=== PATIENT | female | born 1980 | race Caucasian/White ===

== ENCOUNTER 2021-01-21 19:52 | Observation (INO) | payer SELFPAY ==
[2021-01-21] MEDS ORDERED: Sodium Chloride 0.9% 10 ML Syringe FLUSH PRN (20:06)
[2021-01-21] MEDS ORDERED: Sodium Chloride 0.9% 1,000 ML IV ONE (20:09)
--- NOTE | 2021-01-21 20:34 | EDM.PDOC ---
ED HPI GENERAL MEDICAL PROBLEM - General Chief Complaint: Neurological Problem Stated Complaint: SEIZURE Time Seen by Provider: 01/21/21 19:52 Source of Information: Reports: Patient, EMS, Family, Provider History Limitations: Reports: No Limitations - History of Present Illness INITIAL COMMENTS - FREE TEXT/NARRATIVE: Nan, 40-year-old female, presents by ambulance to the emergency department after a witnessed syncopal episode/seizure activity while attending a high school [employer] concert here in the [facility]. Her nephew was performing who also resides with her and her mother. States she had poor intake today having only a slice of cinnamon bread prior to attending the concert. Denies any issues or concerns throughout the day. States she has poor water intake. She was seated next to her mother at which time was noted to be appearing slightly different with some twitching to the eyelids. Her mother lowered her to the floor to avoid injury at which time tonic-clonic activity was noted predominantly facial and some to the extremities. There was no loss of bowel nor bladder, no clenching mashing of the teeth, and no injury noted. Multiple medical providers of the community including Dr. Nancy Edge her PCP were in attendance and witnessed some of the activity as it was concluding. She was able to ambulate with assistance from the gymnasium out to the ambulance for transport here for evaluation. She is denying any concerns physically but is questioning what occurred. Vaccinated with J&J Covid 19, awaiting notice for booster shot. Onset: Today, Sudden Onset Date: 01/21/21 Onset Time: 19:15 Duration: Minutes:, Resolved Prior to Arrival Location: Reports: Head Quality: Reports: Other Severity: Mild Improves with: Reports: Other (resolved) Worsens with: Reports: None Context: Reports: Activity Associated Symptoms: Reports: No Other Symptoms - Related Data Allergies Allergy/AdvReac Type Severity Reaction Status Date / Time ciprofloxacin [From Cipro] Allergy Hives Verified 01/21/21 20:47 ciprofloxacin HCl Allergy Hives Verified 01/21/21 20:47 [From Cipro] levofloxacin [From Levaquin] Allergy Hives Verified 01/21/21 20:47 prochlorperazine edisylate Allergy Anxiety Verified 01/21/21 20:47 [From Compazine] prochlorperazine maleate Allergy Anxiety Verified 01/21/21 20:47 [From Compazine] Home Meds: Home Meds Acetaminop/Dichlphn/Isomethept [Midrin 325-100-65 MG] 1 cap PO DAILY PRN 06/05/13 [History] Acetaminophen [Tylenol] 325 - 650 mg PO Q4H PRN 06/05/13 [History] DULoxetine [Cymbalta] 60 mg PO BEDTIME 06/05/13 [History] Hydrocodone/Acetaminophen [Hydrocodon-Acetaminophn 10-325] 1 each PO DAILY PRN 06/05/13 [History] Ibuprofen [Advil] 200 - 800 mg PO Q6H PRN 06/05/13 [History] LORazepam [Ativan] 0.5 mg PO BEDTIME 06/05/13 [History] Magnesium Oxide [Magnesium] 500 mg PO BEDTIME 06/05/13 [History] Naproxen Sodium [Aleve] 220 mg PO Q12H PRN 06/05/13 [History] Omeprazole/Sodium Bicarbonate [Zegerid] 1 cap PO ASDIRECTED PRN 06/05/13 [History] Promethazine [Phenergan] 0.5 ml TOP ASDIRECTED 06/05/13 [History] diphenhydrAMINE [Benadryl] 50 mg PO BEDTIME PRN 06/05/13 [History] tiZANidine [Zanaflex] 4 mg PO QID PRN 06/05/13 [History] traMADol [Ultram] 50 mg PO Q4H PRN 06/05/13 [History] Ondansetron [Zofran ODT] 4 mg PO ASDIRECTED PRN 01/21/21 [History] Past Medical History - Past Health History Medical/Surgical History: Denies Medical/Surgical History (except) Cardiovascular History: Reports: High Cholesterol, Other (See Below) (Chronic tachycardia) Respiratory History: Reports: None (Chronic smoker with recent decrease/cessation) Genitourinary History: Reports: None Neurological History: Reports: Migraines Psychiatric History: Reports: None Oncologic (Cancer) History: Reports: Ovarian (partial ovarian removal) Social & Family History - Living Situation & Occupation Living situation: Reports: Single ED ROS GENERAL - Review of Systems Review Of Systems: Comprehensive ROS is negative, except as noted in HPI. ED EXAM, GENERAL - Physical Exam Exam: See Below Free Text/Narrative:: Alert, oriented, in no acute distress, stating she feels fine now. She is appropriate to place orientation and function that she had attended this evening as well as the details of her nephew's participation. Her mother is in attendance she somewhat recognizes me from when I sutured her finger the end of August 2020. HEENT is negative discharge or deformity. PERRLA no icterus no injection EOM intact. [place] moist mucous membranes with no erythema. Neck is soft supple no lymphadenopathy no JVD no carotid bruit auscultated. Thorax is clear throughout with no wheezes no crackles. Cardiac S1 is 2 mildly tachycardic slowly resolving throughout the stay. No flank pain no abdominal tenderness no edema to the periphery. Radial pulses correlate with apical heart rate. #1 Interpretation EKG Date: 01/21/21 Time: 20:20 Rhythm: NSR Rate (Beats/Min): 118 [place]: Normal P-Wave: Present QRS: Normal ST-T: Depressed QT: Normal Comparison: NA - No Prior EKG EKG Interpretation Comments: Sinus tachycardia. ?inferior ischemia, No STEMI Course - Vital Signs Last Recorded V/S: Last Vital Signs Temp 97.2 F 01/21/21 20:03 Pulse 105 H 01/21/21 21:00 Resp 12 01/21/21 21:00 BP 113/71 01/21/21 21:00 Pulse Ox 95 01/21/21 21:00 - Orders/Labs/Meds Orders: Active Orders 24 hr Category Date Time Status Peripheral IV Care [RC] . DIRECTED Care 01/21/21 20:08 Active Sodium Chloride 0.9% [Saline Flush] Med 01/21/21 20:06 Active 10 ml FLUSH Q8HR PRN Peripheral IV Insertion Adult [OM.PC] Stat Oth 01/21/21 20:06 Ordered EKG 12 Lead [EK] Stat Ther 01/21/21 20:06 Stop Req Medication Orders Sodium Chloride (Normal Saline) 1,000 mls @ 150 mls/hr IV ASDIRECTED [facility] Ibuprofen (Ibuprofen 600 Mg Tab) 600 mg PO Q6H PRN PRN Reason: Pain (mild 1-3) Sodium Chloride (Sodium Chloride 0.9% 10 Ml Syringe) 10 ml FLUSH Q8HR PRN PRN Reason: keep vein open Labs: Laboratory Tests 01/21/21 01/21/21 01/21/21 Range/Units 20:30 20:30 20:30 WBC 8.61 (5.00-10.00) 10^3/uL RBC 4.46 (3.80-5.50) 10^6/uL Hgb 13.3 D (12.0-16.0) g/dL Hct 41.8 (37.0-47.0) % MCV 93.7 H D (82.0-92.0) fL MCH 29.8 (27.0-31.0) pg MCHC 31.8 L (32.0-36.0) g/dL RDW 14.3 (11.5-14.5) % Plt Count 446 H D (150-400) 10^3/uL MPV 9.0 (7.4-10.4) fL Immature Gran % (Auto) 0.6 (0.0-5.0) % Neut % (Auto) 47.7 L (50.0-70.0) % Lymph % (Auto) 35.3 (20.0-40.0) % [place] % (Auto) 8.2 H (2.0-8.0) % Eos % (Auto) 7.4 H (1.0-3.0) % Baso % (Auto) 0.8 (0.0-1.0) % Neut # (Auto) 4.10 (2.50-7.00) 10^3/uL Lymph # (Auto) 3.04 (1.00-4.00) 10^3/uL [place] # (Auto) 0.71 (0.10-0.80) 10^3/uL Eos # (Auto) 0.64 H (0.10-0.30) 10^3/uL Baso # (Auto) 0.07 (0.00-0.10) 10^3/uL Immature Gran # (Auto) 0.05 (0.00-0.50) 10^3/uL Sodium 142 (136-145) mmol/L Potassium 3.4 L (3.5-5.1) mmol/L Chloride 103 (98-107) mmol/L Carbon Dioxide 22.6 (21.0-32.0) mmol/L Anion Gap 19.8 H (5-15) mmol/L BUN 29 H (7-18) mg/dL Creatinine 1.26 H (0.51-1.17) mg/dL Est Cr Clr Drug Dosing 58.67 mL/min Estimated GFR (MDRD) 47 mL/min Glucose 117 (70-140) mg/dL Calcium 8.6 L (8.7-10.3) mg/dL Total Bilirubin 0.1 L (0.2-1.0) mg/dL AST 21 (15-37) U/L ALT 29 (14-63) U/L Alkaline Phosphatase 155 H (46-116) U/L Troponin I High Sens 5.000 (0-51.000) pg/mL Total Protein 7.1 (6.4-8.2) g/dL Albumin 4.03 (3.40-5.00) g/dL Specimen Type Urine Color (YELLOW) Urine Appearance (CLEAR) Urine pH (5.0-9.0) Ur Specific [place] (1.005-1.030) Urine Protein (NEGATIVE) mg/dL Urine Glucose (UA) (NEGATIVE) mg/dL Urine Ketones (NEGATIVE) mg/dL Urine Occult Blood (NEGATIVE) Urine Nitrite (NEGATIVE) Urine Bilirubin (NEGATIVE) Urine Urobilinogen (0.2-1.0) E.U./dL Ur Leukocyte Esterase (NEGATIVE) Urine RBC (0-5) /HPF Urine WBC (0-5) /HPF Ur Epithelial Cells /LPF Urine Bacteria (NONE TO FEW) /HPF Urine Opiates Screen (NEGATIVE) Ur Oxycodone Screen (NEGATIVE) Urine Methadone Screen (NEGATIVE) Ur Propoxyphene Screen (NEGATIVE) Ur Barbiturates Screen (NEGATIVE) Ur Tricyclics Screen (NEGATIVE) Ur Phencyclidine Scrn (NEGATIVE) Ur Amphetamine Screen (NEGATIVE) U Methamphetamines Scrn (NEGATIVE) U Benzodiazepines Scrn (NEGATIVE) U Cocaine Metab Screen (NEGATIVE) U Marijuana (THC) Screen (NEGATIVE) Ethyl Alcohol < 3 (0) mg/dL SARS CoV-2 RNA Rapid JACOBO (NEGATIVE) 01/21/21 01/21/21 01/21/21 Range/Units 20:33 20:33 20:35 WBC (5.00-10.00) 10^3/uL RBC (3.80-5.50) 10^6/uL Hgb (12.0-16.0) g/dL Hct (37.0-47.0) % MCV (82.0-92.0) fL MCH (27.0-31.0) pg MCHC (32.0-36.0) g/dL RDW (11.5-14.5) % Plt Count (150-400) 10^3/uL MPV (7.4-10.4) fL Immature Gran % (Auto) (0.0-5.0) % Neut % (Auto) (50.0-70.0) % Lymph % (Auto) (20.0-40.0) % [place] % (Auto) (2.0-8.0) % Eos % (Auto) (1.0-3.0) % Baso % (Auto) (0.0-1.0) % Neut # (Auto) (2.50-7.00) 10^3/uL Lymph # (Auto) (1.00-4.00) 10^3/uL [place] # (Auto) (0.10-0.80) 10^3/uL Eos # (Auto) (0.10-0.30) 10^3/uL Baso # (Auto) (0.00-0.10) 10^3/uL Immature Gran # (Auto) (0.00-0.50) 10^3/uL Sodium (136-145) mmol/L Potassium (3.5-5.1) mmol/L Chloride (98-107) mmol/L Carbon Dioxide (21.0-32.0) mmol/L Anion Gap (5-15) mmol/L BUN (7-18) mg/dL Creatinine (0.51-1.17) mg/dL Est Cr Clr Drug Dosing mL/min Estimated GFR (MDRD) mL/min Glucose (70-140) mg/dL Calcium (8.7-10.3) mg/dL Total Bilirubin (0.2-1.0) mg/dL AST (15-37) U/L ALT (14-63) U/L Alkaline Phosphatase (46-116) U/L Troponin I High Sens (0-51.000) pg/mL Total Protein (6.4-8.2) g/dL Albumin (3.40-5.00) g/dL Specimen Type Urincc Urine Color Yellow (YELLOW) Urine Appearance Clear (CLEAR) Urine pH 5.5 (5.0-9.0) Ur Specific [place] >= 1.030 (1.005-1.030) Urine Protein 30 H (NEGATIVE) mg/dL Urine Glucose (UA) Negative (NEGATIVE) mg/dL Urine Ketones Negative (NEGATIVE) mg/dL Urine Occult Blood Negative (NEGATIVE) Urine Nitrite Negative (NEGATIVE) Urine Bilirubin Negative (NEGATIVE) Urine Urobilinogen 0.2 (0.2-1.0) E.U./dL Ur Leukocyte Esterase Negative (NEGATIVE) Urine RBC Not seen (0-5) /HPF Urine WBC 10-20 H (0-5) /HPF Ur Epithelial Cells Moderate H /LPF Urine Bacteria Rare (NONE TO FEW) /HPF Urine Opiates Screen Positive H (NEGATIVE) Ur Oxycodone Screen Negative (NEGATIVE) Urine Methadone Screen Negative (NEGATIVE) Ur Propoxyphene Screen Negative (NEGATIVE) Ur Barbiturates Screen Negative (NEGATIVE) Ur Tricyclics Screen Negative (NEGATIVE) Ur Phencyclidine Scrn Positive H (NEGATIVE) Ur Amphetamine Screen Negative (NEGATIVE) U Methamphetamines Scrn Positive H (NEGATIVE) U Benzodiazepines Scrn Positive H (NEGATIVE) U Cocaine Metab Screen Negative (NEGATIVE) U Marijuana (THC) Screen Negative (NEGATIVE) Ethyl Alcohol (0) mg/dL SARS CoV-2 RNA Rapid JACOBO Negative (NEGATIVE) Meds: Medications Generic Name Dose Route Start Last Admin Trade Name Freq PRN Reason Stop Dose Admin Sodium Chloride 1,000 mls @ 150 mls/hr 01/21/21 22:15 Normal Saline IV ASDIRECTED [facility] Ibuprofen 600 mg 01/21/21 22:12 Ibuprofen 600 Mg Tab PO Q6H PRN Pain (mild 1-3) Sodium Chloride 10 ml 01/21/21 20:06 Sodium Chloride 0.9% 10 Ml Syringe FLUSH Q8HR PRN keep vein open Discontinued Medications Generic Name Dose Route Start Last Admin Trade Name Freq PRN Reason Stop Dose Admin Sodium Chloride 1,000 mls @ 999 mls/hr 01/21/21 20:09 01/21/21 20:56 Normal Saline IV 01/21/21 21:09 999 mls/hr .BOLUS ONE Administration - Radiology Interpretation Free Text/Narrative:: All radiologic findings within normal limits. - Re-Assessments/Exams Free Text/Narrative Re-Assessment/Exam: 01/21/21 22:21 Stating she feels well. Discussed renal insufficiency likely acute from her past days of poor intake and highly recommended observation status with fluid hydration overnight. Departure - Departure Time of Disposition: 21:45 Disposition: Refer to Observation Condition: Good Clinical Impression: Syncope and collapse, Seizure, Tachycardia - Discharge Information *PRESCRIPTION DRUG MONITORING PROGRAM REVIEWED*: Yes *COPY OF PRESCRIPTION DRUG MONITORING REPORT IN PATIENT SYD: Yes Sepsis Event Note (ED) - Focused Exam Vital Signs: Vital Signs Temp Pulse Resp BP Pulse Ox 01/21/21 21:00 105 H 12 113/71 95 01/21/21 20:03 97.2 F 123 H 12 147/77 H 96 01/21/21 20:00 124 H 13 158/84 H 97 ED Communication - ED Communication Date/Time Date: 01/21/21 Time Called: 21:30 - Discussed Case With (1) Discussed Case With (1): Admitting Provider Person/s Notified (1): Nancy Medina - Problem List & Annotations (1) Syncope and collapse SNOMED Code(s): 294067063 Code(s): R55 - SYNCOPE AND COLLAPSE Status: Acute Priority: High Current Visit: Yes (2) Seizure SNOMED Code(s): 69713323 Code(s): R56.9 - UNSPECIFIED CONVULSIONS Status: Acute Priority: High Current Visit: Yes (3) Tachycardia SNOMED Code(s): 3756113 Code(s): R00.0 - TACHYCARDIA, UNSPECIFIED Status: Chronic Priority: High Current Visit: Yes - Problem List Review Problem List Initiated/Reviewed/Updated: Yes - My Orders Last 24 Hours: My Active Orders 01/21/21 20:06 Sodium Chloride 0.9% [Saline Flush] 10 ml FLUSH Q8HR PRN Peripheral IV Insertion Adult [OM.PC] Stat EKG 12 Lead [EK] Stat 01/21/21 20:08 Peripheral IV Care [RC] . DIRECTED - Assessment/Plan Admission H&P: Please use this note as an admission H&P Last 24 Hours: My Active Orders 01/21/21 20:06 Sodium Chloride 0.9% [Saline Flush] 10 ml FLUSH Q8HR PRN Peripheral IV Insertion Adult [OM.PC] Stat EKG 12 Lead [EK] Stat 01/21/21 20:08 Peripheral IV Care [RC] . DIRECTED Plan: Discussed presentation and findings with Dr. Cruz and agree upon admission observation status with continued fluids and neuro checks throughout the night secondary of seizure versus syncope. She will round on her in the morning and discuss lab findings and overall status.
[2021-01-21 20:52] LABS: ANION GAP 19.8 mmol/L (5-15)
[2021-01-21 20:58] LABS: BARBITURATE SCREEN,URINE NEGATIVE (NEGATIVE); BENZODIAZEPINES SCREEN,URINE POSITIVE (NEGATIVE); TCA SCREEN,URINE NEGATIVE (NEGATIVE); THC SCREEN,URINE 50 NG/ML NEGATIVE (NEGATIVE)
--- NOTE | 2021-01-21 21:08 | CT ---
[id number] CT/CT Head WO IV EXAM: NONCONTRAST HEAD CT INDICATION: SYNCOPE/SEIZURE COMPARISON: None. DISCUSSION: The ventricles and sulci are normal in size and configuration. The humphrey and white matter are normal in attenuation. No mass effect or midline shift. No acute hemorrhage or extra-axial fluid collection. No acute territorial infarct is identified. A limited look at the orbits and paranasal sinuses is unremarkable. IMPRESSION: 1. Negative exam. Hunter Rios MD 01/21/21 [id number] Thank you for allowing us to participate in the care of your patient.
--- NOTE | 2021-01-21 21:10 | CR ---
[id number] RAD/RAD Chest PA And Lateral EXAM: RAD Chest PA And Lateral INDICATION: SYCOPE/SEIZURE COMPARISON: None. DISCUSSION: The heart and lungs are normal in appearance. IMPRESSION: 1. Negative exam. Hunter Rios MD 01/21/21 [id number] Thank you for allowing us to participate in the care of your patient.
[2021-01-21] MEDS ORDERED: Ibuprofen 600 MG Tab PO PRN (22:12)
[2021-01-21] MEDS ORDERED: traMADol 50 MG Tab PO PRN (23:10)
[2021-01-21] MEDS ORDERED: LORazepam 0.5 MG Tab PO PRN (23:11)
[2021-01-21] MEDS ORDERED: Ondansetron 4 MG/2 ML SDV IVPUSH PRN (23:13)
[2021-01-21] MEDS: Acetaminophen/HYDROcodone 325-10 MG Tab PO PRN (23:27)
[2021-01-21] MEDS: tiZANidine 4 MG Tab PO PRN (23:27)
[2021-01-21] MEDS: Sodium Chloride 0.9% 1,000 ML IV SCH (23:31)
[2021-01-22] MEDS: Sodium Chloride 0.9% 1,000 ML IV SCH (05:31)
[2021-01-22] MEDS: Acetaminophen/HYDROcodone 325-10 MG Tab PO PRN (08:17)
[2021-01-22] MEDS: tiZANidine 4 MG Tab PO PRN (08:17)
[2021-01-22 08:25] VITALS: BP 101/51; PULSE 77
[2021-01-22 08:27] LABS: ANION GAP 16.3 mmol/L (5-15); CHLORIDE,CL 109 mmol/L (98-107); SODIUM,NA 144 mmol/L (136-145)
--- NOTE | 2021-01-22 09:38 | PCM.DCSUM1 ---
Discharge Summary - Hospital Course Free Text/Narrative:: Admission Date: 01/21/2021 Discharge Date: 01/22/2021 Admission Diagnoses: Syncope with possible seizure activity, head CT negative, normal mentation at discharge Positive urine drug screen for Phencyclidine and amphetamines (not expected) as well as opiates and benzodiazepine (expected) Secondary Diagnoses: Acne Anxiety Chronic Pain Acid Reflux Hot Flashes Hyperlipidemia Insomnia Muscle Spasm Nausea Peripheral Edema NO NEW MEDS AT DISCHARGE CODE STATUS: Full Code Nan was admitted through the ER last evening after she was at a [employer] concert for her nephew at the high school in [place]. She had not eaten much that day, although reportedly felt well and actually drove her family to the concern. During the concert her mother noticed Nan's eyelids twitching and she was staring off and so her mother was concerned for her and lied her down on the floor. Per bystanders she lost consciousness while lying in the floor and had facial twitching as well as possible twitching of the extremities. No tongue biting and no loss of bowel or bladder function. She eventually aroused on her own and asked to sit up but she was slowed in her responses. She was able to go ambulatory with assistance to the ambulance. In the ER head CT was negative, she was alert and answering questions appropriately. She was not able to recall the event. As noted above, urine toxicology was positive for phencyclidine and amphetamines, which were not expected. When I question Nan about this she is very surprised by this. She states she has never taken an illegal substance in her life, certainly has not used methamphetamine and denies using any prescription ADHD meds. She does states she recently took some cold medication that had dextromethorphan in it and she is chronically on tramadol, two things which I researched can trigger a false positive for phencyclidine. She reports only taking her prescription medications. When I see her this morning she is alert and recalls seeing me at the concert last evening where I was assisting in her care while the ambulance arrived. When I told her I pass no judgement if she was using something, I simply need to know the truth, she is adamant that she has not used anything other than her prescribed medications. She is willing to repeat a urine toxicology. This will be done one week after discharge. She is alert, oriented and ready for discharge. Diagnosis: Stroke: No Modified [place] Scale: No Symptoms at All Modified [place] Scale Score: 0 - Discharge Data Discharge Date: 01/22/21 Discharge Disposition: Home, Self-Care 01 Condition: Good - Referral to Home Health Primary Care Physician: Nancy Medina MD - Patient Instructions Diet: Usual Diet as Tolerated Activity: Rest and Relax Today - Discharge Plan *PRESCRIPTION DRUG MONITORING PROGRAM REVIEWED*: Yes *COPY OF PRESCRIPTION DRUG MONITORING REPORT IN PATIENT SYD: Yes Home Medications: Home Meds Acetaminop/Dichlphn/Isomethept [Midrin 325-100-65 MG] 1 - 2 cap PO Q4H PRN 06/05/13 [History] Hydrocodone/Acetaminophen [Hydrocodone-Acetamin 10-325 mg] 1 each PO QID PRN 06/05/13 [History] Magnesium Oxide [Magnesium] 500 mg PO BEDTIME 06/05/13 [History] Omeprazole/Sodium Bicarbonate [Zegerid] 1 cap PO DAILY 06/05/13 [History] tiZANidine [Zanaflex] 4 mg PO QID PRN 06/05/13 [History] traMADol [Ultram] 50 mg PO BID PRN 06/05/13 [History] Ondansetron [Zofran ODT] 4 mg PO Q8H PRN 01/21/21 [History] Albuterol Sulfate [Albuterol Sulfate Hfa] 2 puff PO QID 01/22/21 [History] Albuterol/Ipratropium [DuoNeb 3.0-0.5 MG/3 ML] 3 ml INH Q4H PRN 01/22/21 [History] ClonazePAM [KlonoPIN] 0.5 mg PO DAILY PRN 01/22/21 [History] ClonazePAM [KlonoPIN] 1 - 2 tab PO BEDTIME 01/22/21 [History] Codeine Phosphate/Guaifenesin [Guaifenesin AC Cough Syrup] 10 ml PO Q4H PRN 01/22/21 [History] Diclofenac Sodium 75 mg PO BID 01/22/21 [History] Escitalopram [Lexapro] 20 mg PO DAILY 01/22/21 [History] Furosemide [Lasix] 20 mg PO DAILY PRN 01/22/21 [History] Metoclopramide HCl 10 mg PO Q6H PRN 01/22/21 [History] Minocycline [Minocin] 100 mg PO DAILY 01/22/21 [History] Mirtazapine 30 mg PO BEDTIME 01/22/21 [History] Rosuvastatin [Crestor] 20 mg PO DAILY 01/22/21 [History] Forms: ED Department Discharge Referrals: Nancy Medina MD [Primary Care Provider] - - Discharge Summary/Plan Comment DC Time >30 min.: No Total # of Minutes for Discharge Time: 25 - General Info Date of Service: 01/22/21 Admission Dx/Problem (Free Text: Syncope, possible seizure. - Patient Data Vitals - Most Recent: Last Vital Signs Temp 96.6 F L 01/22/21 08:00 Pulse 77 01/22/21 08:00 Resp 20 01/22/21 08:00 BP 101/51 L 01/22/21 08:00 Pulse Ox 96 01/22/21 08:00 Weight - Most Recent: 155 lb 6.4 oz Lab Results - Last 24 hrs: Laboratory Results - last 24 hr 01/21/21 01/21/21 01/21/21 Range/Units 20:30 20:30 20:30 WBC 8.61 (5.00-10.00) 10^3/uL RBC 4.46 (3.80-5.50) 10^6/uL Hgb 13.3 D (12.0-16.0) g/dL Hct 41.8 (37.0-47.0) % MCV 93.7 H D (82.0-92.0) fL MCH 29.8 (27.0-31.0) pg MCHC 31.8 L (32.0-36.0) g/dL RDW 14.3 (11.5-14.5) % Plt Count 446 H D (150-400) 10^3/uL MPV 9.0 (7.4-10.4) fL Immature Gran % (Auto) 0.6 (0.0-5.0) % Neut % (Auto) 47.7 L (50.0-70.0) % Lymph % (Auto) 35.3 (20.0-40.0) % [place] % (Auto) 8.2 H (2.0-8.0) % Eos % (Auto) 7.4 H (1.0-3.0) % Baso % (Auto) 0.8 (0.0-1.0) % Neut # (Auto) 4.10 (2.50-7.00) 10^3/uL Lymph # (Auto) 3.04 (1.00-4.00) 10^3/uL [place] # (Auto) 0.71 (0.10-0.80) 10^3/uL Eos # (Auto) 0.64 H (0.10-0.30) 10^3/uL Baso # (Auto) 0.07 (0.00-0.10) 10^3/uL Immature Gran # (Auto) 0.05 (0.00-0.50) 10^3/uL Sodium 142 (136-145) mmol/L Potassium 3.4 L (3.5-5.1) mmol/L Chloride 103 (98-107) mmol/L Carbon Dioxide 22.6 (21.0-32.0) mmol/L Anion Gap 19.8 H (5-15) mmol/L BUN 29 H (7-18) mg/dL Creatinine 1.26 H (0.51-1.17) mg/dL Est Cr Clr Drug Dosing 58.67 mL/min Estimated GFR (MDRD) 47 mL/min Glucose 117 (70-140) mg/dL Calcium 8.6 L (8.7-10.3) mg/dL Total Bilirubin 0.1 L (0.2-1.0) mg/dL AST 21 (15-37) U/L ALT 29 (14-63) U/L Alkaline Phosphatase 155 H (46-116) U/L Troponin I High Sens 5.000 (0-51.000) pg/mL Total Protein 7.1 (6.4-8.2) g/dL Albumin 4.03 (3.40-5.00) g/dL Specimen Type Urine Color (YELLOW) Urine Appearance (CLEAR) Urine pH (5.0-9.0) Ur Specific [place] (1.005-1.030) Urine Protein (NEGATIVE) mg/dL Urine Glucose (UA) (NEGATIVE) mg/dL Urine Ketones (NEGATIVE) mg/dL Urine Occult Blood (NEGATIVE) Urine Nitrite (NEGATIVE) Urine Bilirubin (NEGATIVE) Urine Urobilinogen (0.2-1.0) E.U./dL Ur Leukocyte Esterase (NEGATIVE) Urine RBC (0-5) /HPF Urine WBC (0-5) /HPF Ur Epithelial Cells /LPF Urine Bacteria (NONE TO FEW) /HPF Urine Opiates Screen (NEGATIVE) Ur Oxycodone Screen (NEGATIVE) Urine Methadone Screen (NEGATIVE) Ur Propoxyphene Screen (NEGATIVE) Ur Barbiturates Screen (NEGATIVE) Ur Tricyclics Screen (NEGATIVE) Ur Phencyclidine Scrn (NEGATIVE) Ur Amphetamine Screen (NEGATIVE) U Methamphetamines Scrn (NEGATIVE) U Benzodiazepines Scrn (NEGATIVE) U Cocaine Metab Screen (NEGATIVE) U Marijuana (THC) Screen (NEGATIVE) Ethyl Alcohol < 3 (0) mg/dL SARS CoV-2 RNA Rapid JACOBO (NEGATIVE) 01/21/21 01/21/21 01/21/21 Range/Units 20:33 20:33 20:35 WBC (5.00-10.00) 10^3/uL RBC (3.80-5.50) 10^6/uL Hgb (12.0-16.0) g/dL Hct (37.0-47.0) % MCV (82.0-92.0) fL MCH (27.0-31.0) pg MCHC (32.0-36.0) g/dL RDW (11.5-14.5) % Plt Count (150-400) 10^3/uL MPV (7.4-10.4) fL Immature Gran % (Auto) (0.0-5.0) % Neut % (Auto) (50.0-70.0) % Lymph % (Auto) (20.0-40.0) % [place] % (Auto) (2.0-8.0) % Eos % (Auto) (1.0-3.0) % Baso % (Auto) (0.0-1.0) % Neut # (Auto) (2.50-7.00) 10^3/uL Lymph # (Auto) (1.00-4.00) 10^3/uL [place] # (Auto) (0.10-0.80) 10^3/uL Eos # (Auto) (0.10-0.30) 10^3/uL Baso # (Auto) (0.00-0.10) 10^3/uL Immature Gran # (Auto) (0.00-0.50) 10^3/uL Sodium (136-145) mmol/L Potassium (3.5-5.1) mmol/L Chloride (98-107) mmol/L Carbon Dioxide (21.0-32.0) mmol/L Anion Gap (5-15) mmol/L BUN (7-18) mg/dL Creatinine (0.51-1.17) mg/dL Est Cr Clr Drug Dosing mL/min Estimated GFR (MDRD) mL/min Glucose (70-140) mg/dL Calcium (8.7-10.3) mg/dL Total Bilirubin (0.2-1.0) mg/dL AST (15-37) U/L ALT (14-63) U/L Alkaline Phosphatase (46-116) U/L Troponin I High Sens (0-51.000) pg/mL Total Protein (6.4-8.2) g/dL Albumin (3.40-5.00) g/dL Specimen Type Urincc Urine Color Yellow (YELLOW) Urine Appearance Clear (CLEAR) Urine pH 5.5 (5.0-9.0) Ur Specific [place] >= 1.030 (1.005-1.030) Urine Protein 30 H (NEGATIVE) mg/dL Urine Glucose (UA) Negative (NEGATIVE) mg/dL Urine Ketones Negative (NEGATIVE) mg/dL Urine Occult Blood Negative (NEGATIVE) Urine Nitrite Negative (NEGATIVE) Urine Bilirubin Negative (NEGATIVE) Urine Urobilinogen 0.2 (0.2-1.0) E.U./dL Ur Leukocyte Esterase Negative (NEGATIVE) Urine RBC Not seen (0-5) /HPF Urine WBC 10-20 H (0-5) /HPF Ur Epithelial Cells Moderate H /LPF Urine Bacteria Rare (NONE TO FEW) /HPF Urine Opiates Screen Positive H (NEGATIVE) Ur Oxycodone Screen Negative (NEGATIVE) Urine Methadone Screen Negative (NEGATIVE) Ur Propoxyphene Screen Negative (NEGATIVE) Ur Barbiturates Screen Negative (NEGATIVE) Ur Tricyclics Screen Negative (NEGATIVE) Ur Phencyclidine Scrn Positive H (NEGATIVE) Ur Amphetamine Screen Negative (NEGATIVE) U Methamphetamines Scrn Positive H (NEGATIVE) U Benzodiazepines Scrn Positive H (NEGATIVE) U Cocaine Metab Screen Negative (NEGATIVE) U Marijuana (THC) Screen Negative (NEGATIVE) Ethyl Alcohol (0) mg/dL SARS CoV-2 RNA Rapid JACOBO Negative (NEGATIVE) 01/22/21 Range/Units 08:00 WBC (5.00-10.00) 10^3/uL RBC (3.80-5.50) 10^6/uL Hgb (12.0-16.0) g/dL Hct (37.0-47.0) % MCV (82.0-92.0) fL MCH (27.0-31.0) pg MCHC (32.0-36.0) g/dL RDW (11.5-14.5) % Plt Count (150-400) 10^3/uL MPV (7.4-10.4) fL Immature Gran % (Auto) (0.0-5.0) % Neut % (Auto) (50.0-70.0) % Lymph % (Auto) (20.0-40.0) % [place] % (Auto) (2.0-8.0) % Eos % (Auto) (1.0-3.0) % Baso % (Auto) (0.0-1.0) % Neut # (Auto) (2.50-7.00) 10^3/uL Lymph # (Auto) (1.00-4.00) 10^3/uL [place] # (Auto) (0.10-0.80) 10^3/uL Eos # (Auto) (0.10-0.30) 10^3/uL Baso # (Auto) (0.00-0.10) 10^3/uL Immature Gran # (Auto) (0.00-0.50) 10^3/uL Sodium 144 (136-145) mmol/L Potassium 3.3 L (3.5-5.1) mmol/L Chloride 109 H (98-107) mmol/L Carbon Dioxide 22.0 (21.0-32.0) mmol/L Anion Gap 16.3 H (5-15) mmol/L BUN 20 H (7-18) mg/dL Creatinine 0.76 (0.51-1.17) mg/dL Est Cr Clr Drug Dosing 97.27 mL/min Estimated GFR (MDRD) > 60 mL/min Glucose 73 (70-140) mg/dL Calcium 7.6 L (8.7-10.3) mg/dL Total Bilirubin 0.1 L (0.2-1.0) mg/dL AST 18 (15-37) U/L ALT 25 (14-63) U/L Alkaline Phosphatase 117 H (46-116) U/L Troponin I High Sens (0-51.000) pg/mL Total Protein 5.5 L (6.4-8.2) g/dL Albumin 3.10 L (3.40-5.00) g/dL Specimen Type Urine Color (YELLOW) Urine Appearance (CLEAR) Urine pH (5.0-9.0) Ur Specific [place] (1.005-1.030) Urine Protein (NEGATIVE) mg/dL Urine Glucose (UA) (NEGATIVE) mg/dL Urine Ketones (NEGATIVE) mg/dL Urine Occult Blood (NEGATIVE) Urine Nitrite (NEGATIVE) Urine Bilirubin (NEGATIVE) Urine Urobilinogen (0.2-1.0) E.U./dL Ur Leukocyte Esterase (NEGATIVE) Urine RBC (0-5) /HPF Urine WBC (0-5) /HPF Ur Epithelial Cells /LPF Urine Bacteria (NONE TO FEW) /HPF Urine Opiates Screen (NEGATIVE) Ur Oxycodone Screen (NEGATIVE) Urine Methadone Screen (NEGATIVE) Ur Propoxyphene Screen (NEGATIVE) Ur Barbiturates Screen (NEGATIVE) Ur Tricyclics Screen (NEGATIVE) Ur Phencyclidine Scrn (NEGATIVE) Ur Amphetamine Screen (NEGATIVE) U Methamphetamines Scrn (NEGATIVE) U Benzodiazepines Scrn (NEGATIVE) U Cocaine Metab Screen (NEGATIVE) U Marijuana (THC) Screen (NEGATIVE) Ethyl Alcohol (0) mg/dL SARS CoV-2 RNA Rapid JACOBO (NEGATIVE) Med Orders - Current: Current Medications Hydrocodone Bitart/Acetaminophen (Acetaminophen/Hydrocodone 325-10 Mg Tab) 1 tab PO Q6H PRN PRN Reason: Pain Last Admin: 01/22/21 08:17 Dose: 1 tab Documented by: Sodium Chloride (Normal Saline) 1,000 mls @ 150 mls/hr IV ASDIRECTED VIANNEY Last Admin: 01/22/21 05:31 Dose: 150 mls/hr Documented by: Ibuprofen (Ibuprofen 600 Mg Tab) 600 mg PO Q6H PRN PRN Reason: Pain (mild 1-3) Lorazepam (Lorazepam 0.5 Mg Tab) 0.5 mg PO BEDTIME PRN PRN Reason: Anxiety Last Admin: 01/21/21 23:28 Dose: 0.5 mg Documented by: Ondansetron HCl (Ondansetron 4 Mg/2 Ml Sdv) 8 mg IVPUSH Q8H PRN PRN Reason: Nausea Sodium Chloride (Sodium Chloride 0.9% 10 Ml Syringe) 10 ml FLUSH Q8HR PRN PRN Reason: keep vein open Tizanidine HCl (Tizanidine 4 Mg Tab) 4 mg PO Q6H PRN PRN Reason: Spasms Last Admin: 01/22/21 08:17 Dose: 4 mg Documented by: Tramadol HCl (Tramadol 50 Mg Tab) 50 mg PO Q4H PRN PRN Reason: Pain Last Admin: 01/22/21 05:58 Dose: 50 mg Documented by: Discontinued Medications Sodium Chloride (Normal Saline) 1,000 mls @ 999 mls/hr IV .BOLUS ONE Stop: 01/21/21 21:09 Last Admin: 01/21/21 20:56 Dose: 999 mls/hr Documented by: - Exam General: Reports: Alert, Oriented, Cooperative, No Acute Distress Lungs: Reports: Clear to Auscultation, Normal Respiratory Effort Cardiovascular: Reports: Regular Rate, Regular Rhythm, No Murmurs GI/Abdominal Exam: Normal Bowel Sounds
== END 2021-01-22 10:35 | disposition home or self-care (01) ==
LOC: KA.ED 19:52 → KA.MS 22:00
PROVIDERS: ADMIT Internal Medicine; ATTEND Internal Medicine
DX: R55 Syncope and collapse (principal); R56.9 Unspecified convulsions; R00.0 Tachycardia, unspecified; F41.9 Anxiety disorder, unspecified; K21.9 Gastro-esophageal reflux disease without esophagitis; E78.5 Hyperlipidemia, unspecified; G47.00 Insomnia, unspecified; M62.838 Other muscle spasm; E78.00 Pure hypercholesterolemia, unspecified; G43.909 Migraine, unspecified, not intractable, without status migrainosus; Z88.8 Allergy status to other drugs, medicaments and biological substances; Z88.1 Allergy status to other antibiotic agents; Z79.899 Other long term (current) drug therapy; Z20.822 Contact with and (suspected) exposure to COVID-19
CPT/HCPCS: 36415; 70450; 71046; 80053; 80305-QW; 80307; 81001; 84484; 85025; 93005; 93010; 99220; 99285-25; A9270-GY; G0378; J7030; U0002

== ENCOUNTER 2021-03-19 10:06 | Observation (INO) | payer SELFPAY ==
[2021-03-19] MEDS ORDERED: Sodium Chloride 0.9% 1,000 ML IV ONE (10:26)
[2021-03-19 11:04] LABS: ANION GAP 21.1 mmol/L (5-15); CHLORIDE,CL 109 mmol/L (98-107); SODIUM,NA 142 mmol/L (136-145)
[2021-03-19 11:32] LABS: BARBITURATE SCREEN,URINE NEGATIVE (NEGATIVE); BENZODIAZEPINES SCREEN,URINE POSITIVE (NEGATIVE)
[2021-03-19 11:33] LABS: TCA SCREEN,URINE NEGATIVE (NEGATIVE); THC SCREEN,URINE 50 NG/ML NEGATIVE (NEGATIVE)
[2021-03-19] MEDS ORDERED: Ketorolac 30 MG/ML SDV IVPUSH ONE (20:09)
[2021-03-19] MEDS ORDERED: tiZANidine 4 MG Tab PO ONE (20:10)
[2021-03-20] MEDS: Acetaminophen 325 MG Tab PO PRN ×2 (00:28→03:25)
[2021-03-20 06:14] VITALS: BP 112/62; PULSE 96
[2021-03-20] MEDS ORDERED: Ketorolac 30 MG/ML SDV IVPUSH ONE (08:00)
== END 2021-03-20 10:30 | disposition home or self-care (01) ==
LOC: KA.ED 10:06 → KA.MS 12:36
PROVIDERS: ADMIT Internal Medicine; ATTEND Internal Medicine
DX: R47.81 Slurred speech (principal); R41.82 Altered mental status, unspecified; E78.00 Pure hypercholesterolemia, unspecified; J45.909 Unspecified asthma, uncomplicated; K21.9 Gastro-esophageal reflux disease without esophagitis; G43.909 Migraine, unspecified, not intractable, without status migrainosus; F41.9 Anxiety disorder, unspecified; M62.838 Other muscle spasm; G47.00 Insomnia, unspecified; G89.29 Other chronic pain; E78.5 Hyperlipidemia, unspecified; Z79.899 Other long term (current) drug therapy; Z90.49 Acquired absence of other specified parts of digestive tract; Z88.8 Allergy status to other drugs, medicaments and biological substances; Z20.822 Contact with and (suspected) exposure to COVID-19
CPT/HCPCS: 36415; 70450; 80053; 80305-QW; 80307; 81001; 83605; 83735; 85025; 87040; 96374; 96376; 99285-25; A9270-GY; G0378; J1885; J7030; U0002

== ENCOUNTER 2022-01-27 17:19 | Emergency (ER) | payer SELFPAY ==
[2022-01-27] MEDS ORDERED: Sodium Chloride 0.9% 10 ML Syringe FLUSH PRN (17:26)
[2022-01-27] MEDS ORDERED: fentaNYL 100 MCG/2 ML SDV IVPUSH ONE ×2 (17:26→17:56)
[2022-01-27] MEDS ORDERED: fentaNYL 100 MCG/2 ML SDV ONE ×2 (17:53→18:09)
[2022-01-27] MEDS ORDERED: Midazolam 1 MG/ML 2 ML SDV ONE (18:09)
[2022-01-27] MEDS ORDERED: Ketamine 200 MG/20 ML MDV ONE (18:09)
[2022-01-27] MEDS ORDERED: Acetaminophen/HYDROcodone 325-10 MG Tab PO ONE ×2 (19:22→19:26)
[2022-02-03] MEDS ORDERED: Ketamine 200 MG/20 ML MDV IVPUSH ONE (18:14)
[2022-02-03] MEDS ORDERED: fentaNYL 100 MCG/2 ML SDV IVPUSH ONE (18:14)
[2022-02-03] MEDS ORDERED: Midazolam 1 MG/ML 2 ML SDV IVPUSH ONE (18:14)
== END 2022-01-27 21:05 | disposition home or self-care (01) ==
LOC: KA.ED 17:19
DX: S82.851A Displaced trimalleolar fracture of right lower leg, initial encounter for closed fracture (principal); E78.00 Pure hypercholesterolemia, unspecified; F41.9 Anxiety disorder, unspecified; Z88.1 Allergy status to other antibiotic agents; W00.0XXA Fall on same level due to ice and snow, initial encounter
CPT/HCPCS: 27818; 73600-RT; 73700-RT; 96374; 96376; 99284; 99284-25; A9270-GY; J2250; J3010; J3490

== ENCOUNTER 2022-09-01 22:03 | Inpatient (IN) | payer SELFPAY ==
[2022-09-01] MEDS ORDERED: Sodium Chloride 0.9% 10 ML Syringe FLUSH PRN (22:20)
[2022-09-01] MEDS ORDERED: Sodium Chloride 0.9% 1,000 ML IV ONE (22:22)
[2022-09-01] MEDS ORDERED: Ondansetron 4 MG/2 ML SDV IVPUSH ONE ×3 (22:35→23:26)
[2022-09-01 22:42] LABS: BASOPHILS ABSOLUTE AUTO 0.08 10^3/uL (0.00-0.10); BASOPHILS PERCENT AUTO 0.8 % (0.0-1.0); EOSINOPHILS ABSOLUTE AUTO 0.45 10^3/uL (0.10-0.30); EOSINOPHILS PERCENT AUTO 4.6 % (1.0-3.0); HEMATOCRIT 50.8 % (37.0-47.0); HEMOGLOBIN 16.7 g/dL (12.0-16.0); IMMATURE GRAN ABSOLUTE AUTO 0.31 10^3/uL (0.00-0.50); IMMATURE GRAN PERCENT AUTO 3.1 % (0.0-5.0); LYMPHOCYTES ABSOLUTE AUTO 3.08 10^3/uL (1.00-4.00); LYMPHOCYTES PERCENT AUTO 31.2 % (20.0-40.0); MEAN CORPUSCULAR HEMOGLOBIN 29.6 pg (27.0-31.0); MEAN CORPUSCULAR HGB CONC 32.9 g/dL (32.0-36.0); MEAN CORPUSCULAR VOLUME 89.9 fL (82.0-92.0); MEAN PLATELET VOLUME 9.6 fL (7.4-10.4); MONOCYTES ABSOLUTE AUTO 1.03 10^3/uL (0.10-0.80); MONOCYTES PERCENT AUTO 10.4 % (2.0-8.0); NEUTROPHILS ABSOLUTE AUTO 4.93 10^3/uL (2.50-7.00); NEUTROPHILS PERCENT AUTO 49.9 % (50.0-70.0); PLATELET COUNT,PLT 376 10^3/uL (150-400); RED BLOOD CELL COUNT 5.65 10^6/uL (3.80-5.50); RED CELL DISTRIBUTION WIDTH 12.9 % (11.5-14.5); WHITE BLOOD CELL COUNT,WBC 9.88 10^3/uL (5.00-10.00)
[2022-09-01 22:51] LABS: BILIRUBIN,URINE SMALL (NEGATIVE); COLOR,URINE YELLOW (YELLOW); GLUCOSE,URINE NEGATIVE (NEGATIVE); KETONES,URINE 15 mg/dL (NEGATIVE); LEUKOCYTE ESTERASE,URINE NEGATIVE (NEGATIVE); NITRITE,URINE NEGATIVE (NEGATIVE); OCCULT BLOOD,URINE TRACE-INTACT (NEGATIVE); PROTEIN,URINE >=300 mg/dL (NEGATIVE)
[2022-09-01 22:52] LABS: APPEARANCE,URINE SLIGHTLY CLOUDY (CLEAR); BACTERIA,URINE RARE /HPF (NONE TO FEW); EPITHELIAL CELLS,URINE FEW /LPF; MUCUS,URINE FEW /LPF (NEGATIVE); RBC,URINE 0-5 /HPF (0-5); WBC,URINE 0-5 /HPF (0-5)
[2022-09-01 22:55] LABS: AMPHETAMINES SCREEN, URINE NEGATIVE (NEGATIVE); BARBITURATE SCREEN,URINE NEGATIVE (NEGATIVE); BENZODIAZEPINES SCREEN,URINE NEGATIVE (NEGATIVE); COCAINE METABOLITES,URINE NEGATIVE (NEGATIVE); HCG QUALITATIVE,SERUM NEGATIVE (NEGATIVE); METHADONE SCREEN, URINE POSITIVE (NEGATIVE); METHAMPHETAMINES SCREEN, URINE NEGATIVE (NEGATIVE); OXYCODONE SCREEN,URINE NEGATIVE (NEGATIVE); PCP SCREEN,URINE POSITIVE (NEGATIVE); PROPOXYPHENE SCREEN,URINE NEGATIVE (NEGATIVE); TCA SCREEN,URINE NEGATIVE (NEGATIVE); THC SCREEN,URINE 50 NG/ML NEGATIVE (NEGATIVE)
[2022-09-01 23:02] LABS: ALANINE AMINOTRANSFERASE,ALT 47 U/L (14-63); ALBUMIN 4.04 g/dL (3.40-5.00); ALKALINE PHOSPHATASE 183 U/L (46-116); ASPARTATE AMNIOTRANSFERASE,AST 36 U/L (15-37); BILIRUBIN TOTAL 0.4 mg/dL (0.2-1.0); BLOOD UREA NITROGEN,BUN 13 mg/dL (7-18); CALCIUM 9.1 mg/dL (8.7-10.3); CARBON DIOXIDE,CO2 27.6 mmol/L (21.0-32.0); CHLORIDE,CL 101 mmol/L (98-107); CREATININE 0.63 mg/dL (0.51-1.17); ESTIMATED GFR 112 mL/min (>=60); GLUCOSE RANDOM 113 mg/dL (70-140); POTASSIUM,K 3.6 mmol/L (3.5-5.1); PROTEIN TOTAL,TP 7.7 g/dL (6.4-8.2); SODIUM,NA 141 mmol/L (136-145)
[2022-09-01] MEDS ORDERED: Ondansetron 4 MG/2 ML SDV ONE (23:09)
[2022-09-01] MEDS ORDERED: cefTRIAXone 1 GM Vial IVPUSH ONE (23:26)
[2022-09-01] MEDS ORDERED: LORazepam 2 MG/ML SDV IV PRN (23:39)
[2022-09-01] MEDS ORDERED: Ibuprofen 600 MG Tab PO PRN (23:39)
[2022-09-01] MEDS ORDERED: Acetaminophen 325 MG Tab PO PRN (23:39)
[2022-09-01] MEDS ORDERED: Ondansetron 4 MG/2 ML SDV IVPUSH PRN (23:46)
[2022-09-01] MEDS ORDERED: Water For Injection, Sterile 20 ML ONE (23:52)
[2022-09-02 00:07] LABS: INFLUENZA A NAA NEGATIVE (NEGATIVE); INFLUENZA B NAA NEGATIVE (NEGATIVE)
[2022-09-02 00:08] LABS: CORONAVIRUS COVID-19 NAA NEGATIVE (NEGATIVE)
[2022-09-02] MEDS: Sodium Chloride 0.9% 1,000 ML IV SCH ×2 (00:52→07:41)
[2022-09-02] MEDS ORDERED: Mirtazapine 15 MG Tab PO ONE (01:01)
[2022-09-02] MEDS ORDERED: tiZANidine 4 MG Tab PO ONE (01:02)
[2022-09-02] MEDS: Acetaminophen/HYDROcodone 325-10 MG Tab PO PRN ×2 (01:18→08:48)
[2022-09-02 07:05] LABS: BASOPHILS ABSOLUTE AUTO 0.05 10^3/uL (0.00-0.10); BASOPHILS PERCENT AUTO 0.4 % (0.0-1.0); EOSINOPHILS ABSOLUTE AUTO 0.11 10^3/uL (0.10-0.30); HEMATOCRIT 43.8 % (37.0-47.0); HEMOGLOBIN 14.2 g/dL (12.0-16.0); IMMATURE GRAN ABSOLUTE AUTO 0.23 10^3/uL (0.00-0.50); LYMPHOCYTES PERCENT AUTO 19.1 % (20.0-40.0); MEAN CORPUSCULAR HEMOGLOBIN 29.6 pg (27.0-31.0); MEAN CORPUSCULAR HGB CONC 32.4 g/dL (32.0-36.0); MEAN CORPUSCULAR VOLUME 91.3 fL (82.0-92.0); MEAN PLATELET VOLUME 9.5 fL (7.4-10.4); MONOCYTES ABSOLUTE AUTO 1.01 10^3/uL (0.10-0.80); MONOCYTES PERCENT AUTO 8.8 % (2.0-8.0); NEUTROPHILS ABSOLUTE AUTO 7.91 10^3/uL (2.50-7.00); NEUTROPHILS PERCENT AUTO 68.7 % (50.0-70.0); PLATELET COUNT,PLT 283 10^3/uL (150-400); RED CELL DISTRIBUTION WIDTH 13.1 % (11.5-14.5); WHITE BLOOD CELL COUNT,WBC 11.51 10^3/uL (5.00-10.00)
[2022-09-02 07:20] LABS: ALBUMIN 3.25 g/dL (3.40-5.00); ANION GAP 12.8 mmol/L (5-15); BILIRUBIN TOTAL 0.4 mg/dL (0.2-1.0); CALCIUM 8.1 mg/dL (8.7-10.3); CARBON DIOXIDE,CO2 28.6 mmol/L (21.0-32.0); CREATININE 0.62 mg/dL (0.51-1.17); EST CRCL DRUG DOSING (CG) 116.81 mL/min; POTASSIUM,K 4.4 mmol/L (3.5-5.1); PROTEIN TOTAL,TP 6.2 g/dL (6.4-8.2)
[2022-09-02] MEDS ORDERED: tiZANidine 4 MG Tab PO PRN (09:15)
[2022-09-02] MEDS ORDERED: Ondansetron 4 MG Tab.DIS PO PRN (09:15)
[2022-09-02] MEDS ORDERED: Albuterol 8 GM Inhaler INH PRN (09:15)
[2022-09-02] MEDS ORDERED: [UNRECOGNIZED DRUG - OTHER] PO PRN (09:15)
[2022-09-02] MEDS ORDERED: ACETAMINOPHEN PO PRN (09:15)
[2022-09-02] MEDS ORDERED: ISOMETHEPTENE PO PRN (09:15)
[2022-09-02] MEDS ORDERED: Acetaminophen/HYDROcodone 325-5 MG Tab PO PRN (09:27)
[2022-09-02] MEDS ORDERED: OMEPRAZOLE PO SCH (09:30)
[2022-09-02] MEDS ORDERED: SODIUM BICARBONATE PO SCH (09:30)
[2022-09-02 11:49] VITALS: BP 103/64; PULSE 72
[2022-09-02] MEDS ORDERED: Gabapentin 100 MG Cap PO SCH (14:00)
[2022-09-02] MEDS ORDERED: Diclofenac Sodium 75 MG Tab.EC PO SCH (18:00)
[2022-09-02] MEDS ORDERED: Mirtazapine 15 MG Tab PO SCH (21:00)
[2022-09-03] MEDS ORDERED: Escitalopram 10 MG Tab PO SCH (09:30)
== END 2022-09-02 13:26 | disposition home or self-care (01) | DRG 101 ==
LOC: KA.ED 22:03 → SUPCPDRO 22:03 → KA.MS 23:37 → UNDOADMIN 23:37 → KA.MS 23:39 → UNDOADMIN 23:39 → KA.MS 09-02 00:20
PROVIDERS: ADMIT Internal Medicine; ATTEND Internal Medicine
DX: R56.9 Unspecified convulsions (principal); E78.00 Pure hypercholesterolemia, unspecified; J45.909 Unspecified asthma, uncomplicated; K21.9 Gastro-esophageal reflux disease without esophagitis; M19.90 Unspecified osteoarthritis, unspecified site; F41.9 Anxiety disorder, unspecified; E86.0 Dehydration; R74.02 Elevation of levels of lactic acid dehydrogenase [LDH]; Z88.1 Allergy status to other antibiotic agents; Z88.8 Allergy status to other drugs, medicaments and biological substances; Z79.899 Other long term (current) drug therapy; Z85.43 Personal history of malignant neoplasm of ovary; Z90.49 Acquired absence of other specified parts of digestive tract
CPT/HCPCS: 0240U; 36415; 70450; 71046; 80053; 80305-QW; 81001; 83605; 84484; 84703; 85025; 87040; 93005; 93010; 99223; A9270-GY; J0696; J2405; J3490; J7030

== ENCOUNTER 2023-06-28 20:48 | Emergency (ER) | payer SELFPAY ==
[2023-06-28] MEDS: Ondansetron 4 MG Tab.DIS PO ONE (21:23)
[2023-06-28 21:37] LABS: BASOPHILS ABSOLUTE AUTO 0.07 10^3/uL (0.00-0.10); BASOPHILS PERCENT AUTO 0.6 % (0.0-1.0); EOSINOPHILS ABSOLUTE AUTO 0.39 10^3/uL (0.10-0.30); EOSINOPHILS PERCENT AUTO 3.1 % (1.0-3.0); HEMATOCRIT 38.9 % (37.0-47.0); HEMOGLOBIN 13.4 g/dL (12.0-16.0); IMMATURE GRAN ABSOLUTE AUTO 0.34 10^3/uL (0.00-0.50); IMMATURE GRAN PERCENT AUTO 2.7 % (0.0-5.0); LYMPHOCYTES ABSOLUTE AUTO 2.57 10^3/uL (1.00-4.00); LYMPHOCYTES PERCENT AUTO 20.4 % (20.0-40.0); MEAN CORPUSCULAR HEMOGLOBIN 30.7 pg (27.0-31.0); MEAN CORPUSCULAR HGB CONC 34.4 g/dL (32.0-36.0); MEAN CORPUSCULAR VOLUME 89.2 fL (82.0-92.0); MEAN PLATELET VOLUME 9.1 fL (7.4-10.4); MONOCYTES ABSOLUTE AUTO 1.13 10^3/uL (0.10-0.80); NEUTROPHILS ABSOLUTE AUTO 8.07 10^3/uL (2.50-7.00); NEUTROPHILS PERCENT AUTO 64.2 % (50.0-70.0); PLATELET COUNT,PLT 325 10^3/uL (150-400); RED BLOOD CELL COUNT 4.36 10^6/uL (3.80-5.50); WHITE BLOOD CELL COUNT,WBC 12.57 10^3/uL (5.00-10.00)
[2023-06-28 21:51] LABS: ALBUMIN 3.56 g/dL (3.40-5.00); BILIRUBIN TOTAL 0.3 mg/dL (0.2-1.0); CALCIUM 8.1 mg/dL (8.7-10.3); CARBON DIOXIDE,CO2 24.3 mmol/L (21.0-32.0); CREATININE 0.72 mg/dL (0.51-1.17); EST CRCL DRUG DOSING (CG) 100.58 mL/min; POTASSIUM,K 3.3 mmol/L (3.5-5.1); PROTEIN TOTAL,TP 6.7 g/dL (6.4-8.2)
[2023-06-28 21:57] LABS: APPEARANCE,URINE CLEAR (CLEAR); BACTERIA,URINE RARE /HPF (NONE TO FEW); BILIRUBIN,URINE NEGATIVE (NEGATIVE); COLOR,URINE YELLOW (YELLOW); EPITHELIAL CELLS,URINE RARE /LPF; GLUCOSE,URINE NEGATIVE (NEGATIVE); HYALINE CASTS,URINE RARE; KETONES,URINE NEGATIVE (NEGATIVE); LEUKOCYTE ESTERASE,URINE NEGATIVE (NEGATIVE); NITRITE,URINE NEGATIVE (NEGATIVE); OCCULT BLOOD,URINE NEGATIVE (NEGATIVE); PH,URINE 5.5 (5.0-9.0); PROTEIN,URINE 100 mg/dL (NEGATIVE); RBC,URINE 0-5 /HPF (0-5); UROBILINOGEN,URINE 0.2 E.U./dL (0.2-1.0); WBC,URINE 0-5 /HPF (0-5)
[2023-06-28 21:58] LABS: MUCUS,URINE FEW /LPF (NEGATIVE)
== END 2023-06-28 22:56 | disposition home or self-care (01) ==
LOC: KA.ED 20:48
DX: S00.83XA Contusion of other part of head, initial encounter (principal); R56.9 Unspecified convulsions; E78.00 Pure hypercholesterolemia, unspecified; K21.9 Gastro-esophageal reflux disease without esophagitis; Z88.1 Allergy status to other antibiotic agents; Z88.8 Allergy status to other drugs, medicaments and biological substances; Z79.51 Long term (current) use of inhaled steroids; Z79.899 Other long term (current) drug therapy; Z90.49 Acquired absence of other specified parts of digestive tract; W19.XXXA Unspecified fall, initial encounter; Y92.002 Bathroom of unspecified non-institutional (private) residence as the place of occurrence of the external cause
CPT/HCPCS: 36415; 70450; 80053; 81001; 85025; 99284; 99285; A9270-GY